=== PATIENT | male | born 1940 | race Caucasian/White ===

== ENCOUNTER → 2021-02-12 13:12 | Outpatient (REF) | payer MEDICARE, SELFPAY | LOC: ANHLAB 13:12 | PROVIDERS: PCP Internal Medicine; Visit Provider Nurse Practitioner | DX: C44.222 Squamous cell carcinoma of skin of right ear and external auricular canal (principal); L57.0 Actinic keratosis | CPT/HCPCS: 88305 ==

== ENCOUNTER → 2021-03-25 09:56 | Outpatient (REF) | payer MEDICARE, SELFPAY | LOC: ANHLAB 09:56 | PROVIDERS: PCP Internal Medicine; Visit Provider Nurse Practitioner | DX: C44.222 Squamous cell carcinoma of skin of right ear and external auricular canal (principal) | CPT/HCPCS: 88305; 88331 ==

== ENCOUNTER → 2021-08-13 13:26 | Outpatient (REF) | payer MEDICARE, SELFPAY | LOC: ANHLAB 13:26 | PROVIDERS: PCP Internal Medicine; Visit Provider Nurse Practitioner | DX: D49.2 Neoplasm of unspecified behavior of bone, soft tissue, and skin (principal) | CPT/HCPCS: 88305; 88342 ==

== ENCOUNTER 2021-12-03 08:00 | Outpatient (NON) | payer MEDICARE, SELFPAY | END 2021-12-03 08:01 | disposition home or self-care (01) | LOC: ANHLAB 12-04 12:18 | PROVIDERS: PCP Internal Medicine; Visit Provider Nurse Practitioner | DX: D22.39 Melanocytic nevi of other parts of face (principal); C44.622 Squamous cell carcinoma of skin of right upper limb, including shoulder | CPT/HCPCS: 88305; 88342 ==

== ENCOUNTER 2021-12-10 08:00 | Outpatient (NON) | payer MEDICARE, SELFPAY | END 2021-12-10 08:01 | disposition home or self-care (01) | LOC: ANHLAB 12-11 13:02 | PROVIDERS: PCP Internal Medicine; Visit Provider Nurse Practitioner | DX: C44.329 Squamous cell carcinoma of skin of other parts of face (principal) | CPT/HCPCS: 88304; 88342 ==

== ENCOUNTER 2022-04-29 13:42 | Outpatient (NON) | payer MEDICARE, SELFPAY | END 2022-04-29 13:43 | disposition home or self-care (01) | LOC: ANHLAB 04-30 13:44 | PROVIDERS: PCP Internal Medicine; Visit Provider Nurse Practitioner | DX: C43.4 Malignant melanoma of scalp and neck (principal) | CPT/HCPCS: 88305 ==

== ENCOUNTER 2022-05-27 09:00 | Outpatient (NON) | payer MEDICARE, SELFPAY | END 2022-05-27 09:01 | disposition home or self-care (01) | PROVIDERS: PCP Internal Medicine; Visit Provider Nurse Practitioner | DX: C43.9 Malignant melanoma of skin, unspecified (principal); L90.5 Scar conditions and fibrosis of skin; L57.8 Other skin changes due to chronic exposure to nonionizing radiation; B35.8 Other dermatophytoses | CPT/HCPCS: 88305 ==

== ENCOUNTER 2022-11-13 08:00 | Outpatient (NON) | payer MEDICARE, SELFPAY | END 2022-11-13 08:01 | disposition home or self-care (01) | PROVIDERS: PCP Internal Medicine; Visit Provider Nurse Practitioner | DX: C44.629 Squamous cell carcinoma of skin of left upper limb, including shoulder (principal) | CPT/HCPCS: 88305 ==